=== PATIENT | male | born 1950 | race Caucasian/White ===

== ENCOUNTER 2023-07-14 08:29 | Outpatient (REF) | payer MEDICARE, SELFPAY ==
--- NOTE | ~2023-07-14 | XR_ITS ---
EXAMINATION: XR SHOULDER, RIGHT CLINICAL INFORMATION: Pain COMPARISON: None available. TECHNIQUE: AP neutral and transscapular Y view, 2 views, of the right shoulder. FINDINGS: Mild degenerative changes acromioclavicular joint. Mild hypertrophic change along the inferior aspect of the glenoid. No abnormal soft tissue calcifications identified adjacent to the humeral head. Glenohumeral alignment preserved. XR/XR shoulder RT min 2V IMPRESSION: Mild degenerative changes.
== END 2023-07-14 08:30 | disposition home or self-care (01) ==
LOC: HO.HOSX 08:29
PROVIDERS: Visit Provider Orthopaedic Surgery
DX: M25.811 Other specified joint disorders, right shoulder (principal)
CPT/HCPCS: 20610; 73030; J3301

== ENCOUNTER 2023-07-14 08:45 | Outpatient (AMB) | payer MEDICARE, SELFPAY ==
--- NOTE | 2023-07-14 08:51 | MHC.OFFVIS ---
Intake Vital Signs 07/14/23 09:01 Height 5 ft 11 in Weight 185 lb BMI 25.8 Intake Visit Reasons: HOST AND HOSTESS-Right Shoulder Pain Intake Note: Bebeto is a 72 year old right hand dominant male who presents today with complaints of right shoulder pain. Injected in February 20 2023. The patient describes his pain as sharp in nature. He denies any weakness. He got fairly good relief from his last injection. He did aggravate his shoulder while playing basketball with his grandchildren. He has tried Tylenol and anti-inflammatory medicines which gave him minimal relief. He would like to hold off on surgery for as long as possible. Allergies allopurinol Allergy (Verified 07/14/23 09:02) racing heart enalapril Allergy (Verified 07/14/23 09:02) Swelling levofloxacin [From Levaquin] Allergy (Verified 07/14/23 09:02) racing heart Medication List - Last Reconciled 07/14/23 by Stanley Wright MD diltiazem HCl 180 mg PO DAILY hydrochlorothiazide 12.5 mg PO DAILY levocetirizine 5 mg PO DAILY rosuvastatin 10 mg PO QPM [facility] Surgical History (Updated 07/14/23 @ 09:05 by Rocio Martino CMA) H/O hernia repair (09/28/17) Social History (Updated 07/14/23 @ 09:05 by Rocio Martino CMA) Alcohol intake: current Alcohol intake frequency: holidays/special occasions only Patient Tobacco Use Status: Never used Tobacco Current occupational status: retired Physical Exam Vital Signs: BMI result Body Mass Index 25.8 Const Other: Well-nourished well-developed very friendly male awake alert and oriented x3 in no acute distress Extrem Other: Bilateral upper extremity examination shows good capillary refill, no skin lesions noted, normal sensation light touch Right shoulder examination shows almost full range of motion when compared to his left shoulder, 4+ out of 5 strength with supraspinatus testing, positive impingement signs, tenderness over his acromioclavicular joint, no instability Office Procedures Joint Injection/Drain Joint Injection/Drain Primary Site: right shoulder Injected: 40 mg of, Kenalog and 1% plain lidocaine Procedure: The patient tolerated the procedure well Coding 85272 - Large joint Procedure code (CPT) selection complete Results Reviewed Results Reviewed: 07/14/23 09:28 Lidocaine HCl 2 % MPF [Xylocaine 2 % MPF] 5 ml .ROUTE .STK-MED ONE Triamcinolone Acetonide [Kenalog-40] 40 mg .ROUTE .STK-MED ONE X-rays of the patient's right shoulder taken today show severe acromioclavicular joint narrowing, a type 3 acromion, no acute bony abnormalities Assessment & Plan Assessment & Plan (1) Impingement of right shoulder: Code(s): M25.811 - Other specified joint disorders, right shoulder Plan Mr. Comer presents with right shoulder pain due to impingement syndrome and rotator cuff tendinosis. I had a lengthy discussion with the patient regarding the treatment options. He wishes to hold off on surgery for as long as possible. I agree with this plan. The risks and benefits of a right shoulder cortisone injection were discussed at length with the patient. The patient wished to proceed. He tolerated the injection well. Activity modifications were discussed at length with the patient. He will follow up with me on an as-needed basis should his symptoms not plateau at an acceptable level over the next few months. Feel free to call me at any time should questions regarding his orthopedic management arise. Thank you very much for asking me to see this very friendly gentleman. I spent 22 minutes in reviewing the patient's records and imaging studies, seeing the patient and documenting in the medical record. Orders: Orders XR shoulder RT min 2V Today M25.511 - Pain in right shoulder AMB Joint Injection/Aspiration Today M25.811 - Other specified joint disorders, right shoulder Coding Level of Care Code Est Pt Level 2 (95309) Diagnoses Impingement of right shoulder M25.811 CPT Codes Coding - 13542 Large joint: 94937 - Large joint ([id number])
[2023-07-14 09:01] VITALS: BMI 25.8
== END 2023-07-14 09:44 | disposition home or self-care (01) ==
PROVIDERS: PCP Family Medicine; Visit Provider Orthopaedic Surgery
DX: M25.811 Other specified joint disorders, right shoulder (principal)
CPT/HCPCS: 20610; 99204; 99214

== ENCOUNTER 2023-10-14 13:10 | Outpatient (AMB) | payer MEDICARE, SELFPAY ==
--- NOTE | 2023-10-14 13:38 | MHC.OFFVIS ---
Intake Intake Visit Reasons: ov- -Right Shoulder Pain Intake Note: Justen is a 72 year old male who present today for a follow up of his right shoulder pain. Patient reports his last injection gave him mild relief. He has done physical therapy for 12 weeks over the last 6 months which aggravated his pain. He denies any weakness. He has tried Tylenol and anti-inflammatory medicines which gave him minimal relief. Allergies allopurinol Allergy (Verified 10/14/23 13:45) racing heart enalapril Allergy (Verified 10/14/23 13:45) Swelling levofloxacin [From Levaquin] Allergy (Verified 10/14/23 13:45) racing heart Medication List - Last Reconciled 10/14/23 by Stanley Wright MD diltiazem HCl 180 mg PO DAILY hydrochlorothiazide 12.5 mg PO DAILY levocetirizine 5 mg PO DAILY rosuvastatin 10 mg PO QPM [facility] Surgical History (Updated 07/14/23 @ 09:05 by Rocio Martino CMA) H/O hernia repair (09/28/17) Social History Alcohol intake: current Alcohol intake frequency: holidays/special occasions only Patient Tobacco Use Status: Never used Tobacco Current occupational status: retired Physical Exam Const Other: Well-nourished well-developed very friendly male awake alert and oriented x3 in no acute distress Extrem Other: Bilateral upper extremity examination shows good capillary refill, no skin lesions noted, normal sensation light touch Right shoulder examination shows decreased range of motion when compared to his left shoulder, 4+ out of 5 strength with supraspinatus testing, positive impingement signs, tenderness over his acromioclavicular joint, no instability Office Procedures Joint Injection/Drain Joint Injection/Drain Primary Site: right shoulder Prep: site was prepped using aseptic technique Injected: 40 mg of, Kenalog and 1% plain lidocaine Procedure: The patient tolerated the procedure well Coding 78779 - Large joint Procedure code (CPT) selection complete Results Reviewed Results Reviewed: 10/14/23 14:02 Lidocaine HCl 2 % MPF [Xylocaine 2 % MPF] 5 ml .ROUTE .STK-MED ONE Triamcinolone Acetonide [Kenalog-40] 40 mg .ROUTE .STK-MED ONE MRI of the patient's right shoulder shows severe acromioclavicular joint narrowing, a type 2 acromion, signal change within the supraspinatus tendon due to rotator cuff tendinosis versus a small rotator cuff tear Assessment & Plan Assessment & Plan (1) Impingement of right shoulder: Code(s): M25.811 - Other specified joint disorders, right shoulder Plan: Mr. Comer presents with right shoulder pain due to impingement syndrome, acromioclavicular joint arthritis and rotator cuff tendinosis versus a small tear. I had a lengthy discussion with the patient regarding the treatment options. He wishes to hold off on surgery for as long as possible. I agree with this plan. The risks and benefits of a right shoulder cortisone injection were discussed at length with the patient. The patient wished to proceed. He tolerated the injection well. He will continue with his home stretching program to prevent stiffness. If he fails continued non operative treatments we will further discuss the risks and benefits of right shoulder surgery. Surgery would likely involve right shoulder diagnostic arthroscopy with distal clavicle excision, acromioplasty and rotator cuff repair showed a full-thickness tear be found at the time of his surgery. Feel free to call me at any time should questions regarding his orthopedic management arise. I spent 22 minutes in reviewing the patient's records and imaging studies, seeing the patient and documenting in the medical record. Orders: Orders AMB Joint Injection/Aspiration Today M25.811 - Other specified joint disorders, right shoulder Coding Level of Care Code Est Pt Level 2 (27521) Diagnoses Impingement of right shoulder M25.811 CPT Codes Coding - 70812 Large joint: 70583 - Large joint ([id number])
== END 2023-10-14 14:19 | disposition home or self-care (01) ==
PROVIDERS: PCP Family Medicine; Visit Provider Orthopaedic Surgery
DX: M25.811 Other specified joint disorders, right shoulder (principal); M75.41 Impingement syndrome of right shoulder; M19.011 Primary osteoarthritis, right shoulder
CPT/HCPCS: 20610; 99213

== ENCOUNTER → 2023-10-14 13:10 | Outpatient (BNVA) | payer MEDICARE, SELFPAY | PROVIDERS: PCP Family Medicine; Visit Provider Orthopaedic Surgery | DX: M25.811 Other specified joint disorders, right shoulder (principal) | CPT/HCPCS: 20610; 99212; J3301 ==

== ENCOUNTER 2024-04-11 09:33 | Outpatient (AMB) | payer MEDICARE, SELFPAY ==
[2024-04-11 09:45] VITALS: BMI 25.8
--- NOTE | 2024-04-11 09:45 | A.OFFVIS_ITS ---
Vital Signs 04/11/24 09:45 Height 5 ft 11 in Weight 185 lb BMI 25.8 Intake Visit Reasons: OV-Right Shoulder Pain-follow up Intake Note: Bebeto is a 72 year old right hand dominant male who presents today with complaints of progressively worsening right shoulder pain and weakness. The patient states that he aggravated his shoulder last year while playing basketball with his grandchildren. Since that time his pain and weakness have gotten worse. He has failed the last 6 weeks of conservative treatment. He has tried Tylenol and anti-inflammatory medicines which gave him minimal relief. Has also done physical therapy exercises which aggravated his pain. Has had injections in the past which gave him only temporary relief. The patient has tried Tylenol and anti-inflammatory medicines which gave him only mild relief. The patient reports weakness when lifting his right hand above shoulder height. Allergies allopurinol Allergy (Verified 04/11/24 09:56) racing heart enalapril Allergy (Verified 04/11/24 09:56) Swelling levofloxacin [From Levaquin] Allergy (Verified 04/11/24 09:56) racing heart Medication List - Last Reconciled 04/11/24 by Stanley Wright MD diltiazem HCl CD 180 mg PO DAILY hydrochlorothiazide 12.5 mg PO DAILY levocetirizine 5 mg PO DAILY rosuvastatin 10 mg PO QPM [facility] Surgical History (Updated 07/14/23 @ 09:05 by Rocio Martino CMA) H/O hernia repair (09/28/17) Social History (Updated 04/11/24 @ 09:57 by Cee Mcdaniels CMA) Alcohol intake: current Alcohol intake frequency: holidays/special occasions only Patient Tobacco Use Status: Never used Tobacco Current occupational status: retired Current occupation: Right hand dominant Physical Exam Vital Signs: BMI result Body Mass Index 25.8 Const Other: Well-nourished well-developed very friendly male awake alert and oriented x3 in no acute distress Extrem Other: Bilateral upper extremity examination shows good capillary refill, no skin lesions noted, normal sensation light touch Right shoulder examination shows slightly decreased range of motion when compared to his left shoulder, 4+ out of 5 strength with supraspinatus testing, positive impingement signs, tenderness over his acromioclavicular joint, no instability Results Reviewed Results Reviewed: X-rays of the patient's right shoulder show severe acromioclavicular joint narrowing, a type 2 acromion, no acute bony abnormalities Assessment & Plan Assessment & Plan (1) Right shoulder pain: Code(s): M25.511 - Pain in right shoulder Category: Medical Plan Mr. Comer presents with progressively worsening right shoulder pain and weakness possibly due to a full-thickness rotator cuff tear. Thus, I will send the patient for an MRI of his right shoulder for further evaluation. I will see him back once the MRI is completed to discuss the findings and treatment options. Will continue with his range of motion exercises in the meantime to prevent stiffness. Feel free to call me at any time should questions regarding his orthopedic management arise. I spent 21 minutes in reviewing the patient's records and imaging studies, seeing the patient and documenting in the medical record. Orders: Orders MR shoulder RT wo con Today M75.121 - Complete rotator cuff tear or rupture of right shoulder, not specified as traumatic Coding Level of Care Code Est Pt Level 3 (14076) Diagnoses Right shoulder pain M25.511
== END 2024-04-11 10:10 | disposition home or self-care (01) ==
PROVIDERS: PCP Family Medicine; Visit Provider Orthopaedic Surgery
DX: M25.511 Pain in right shoulder (principal)
CPT/HCPCS: 99213

== ENCOUNTER → 2024-04-11 09:33 | Outpatient (BNVA) | payer MEDICARE, SELFPAY | PROVIDERS: PCP Family Medicine; Visit Provider Orthopaedic Surgery | DX: M25.511 Pain in right shoulder (principal) | CPT/HCPCS: 99212 ==

== ENCOUNTER 2024-05-04 13:32 | Outpatient (AMB) | payer MEDICARE, SELFPAY ==
--- NOTE | 2024-05-04 13:33 | A.OFFVIS_ITS ---
Intake Visit Reasons: O/V Rt shoulder MRI review Intake Note: Justen is a 73 year old male who presents with complaints of progressively worsening right shoulder pain. The patient states that he aggravated his shoulder last year while playing basketball with his grandchildren. Since that time his pain and weakness have gotten worse. He has failed the last 6 weeks of conservative treatment. He has tried Tylenol and anti-inflammatory medicines which gave him minimal relief. Has also done physical therapy exercises which aggravated his pain. Has had injections in the past which gave him only temporary relief. The patient has tried Tylenol and anti-inflammatory medicines which gave him only mild relief. The patient reports mild weakness when lifting his right hand above shoulder height. Allergies allopurinol Allergy (Verified 05/04/24 13:42) racing heart enalapril Allergy (Verified 05/04/24 13:42) Swelling levofloxacin [From Levaquin] Allergy (Verified 05/04/24 13:42) racing heart Medication List - Last Reconciled 05/05/24 by Stanley rWight MD diltiazem HCl CD 180 mg PO DAILY hydrochlorothiazide 12.5 mg PO DAILY levocetirizine 5 mg PO DAILY rosuvastatin 10 mg PO QPM [facility] Surgical History H/O hernia repair (09/28/17) Social History Alcohol intake: current Alcohol intake frequency: holidays/special occasions only Patient Tobacco Use Status: Never used Tobacco Current occupational status: retired Current occupation: Right hand dominant Physical Exam Const Other: Well-nourished well-developed very friendly male awake alert and oriented x3 in no acute distress Extrem Other: Bilateral upper extremity examination shows good capillary refill, no skin lesions noted, normal sensation light touch Right shoulder examination shows slightly decreased range of motion when compared to his left shoulder, 4+ out of 5 strength with supraspinatus testing, positive impingement signs, tenderness over his acromioclavicular joint, no instability Results Reviewed Results Reviewed: MRI of the patient's right shoulder show severe acromioclavicular joint narrowing, a type 2 acromion, signal change within the supraspinatus tendon most likely due to rotator cuff tendinosis Assessment & Plan Assessment & Plan (1) Impingement of right shoulder: Code(s): M25.811 - Other specified joint disorders, right shoulder Category: Medical Plan Mr. Comer presents with right shoulder pain due to impingement syndrome and acromioclavicular joint arthritis. I had a lengthy discussion with the patient regarding the treatment options. At this point he has failed continued non operative treatments. The risks and benefits of right shoulder surgery were discussed at length with the patient. The patient wishes to proceed with surgery. Surgery will most likely involve right shoulder diagnostic arthroscopy with arthroscopic distal clavicle excision and acromioplasty. The patient will contact my office to pick a surgery date. He will follow-up as instructed. Feel free to call me at any time should questions regarding his orthopedic management arise. I spent 20 minutes in reviewing the patient's records and imaging studies, seeing the patient and documenting in the medical record. Coding Level of Care Code Est Pt Level 3 (79803) Diagnoses Impingement of right shoulder M25.811
== END 2024-05-04 13:55 | disposition home or self-care (01) ==
PROVIDERS: PCP Family Medicine; Visit Provider Orthopaedic Surgery
DX: M25.811 Other specified joint disorders, right shoulder (principal)
CPT/HCPCS: 99213

== ENCOUNTER → 2024-05-04 13:32 | Outpatient (BNVA) | payer MEDICARE, SELFPAY | PROVIDERS: PCP Family Medicine; Visit Provider Orthopaedic Surgery | DX: M25.811 Other specified joint disorders, right shoulder (principal) | CPT/HCPCS: 99212 ==

== ENCOUNTER → 2024-06-06 11:14 | Outpatient (BNV) | payer MEDICARE, SELFPAY | PROVIDERS: PCP Family Medicine; Visit Provider Internal Medicine Cardiovascular Disease | DX: R00.1 Bradycardia, unspecified (principal); R94.31 Abnormal electrocardiogram [ECG] [EKG] | CPT/HCPCS: 93010 ==

== ENCOUNTER 2024-06-10 07:45 | Day surgery (SDC) | payer MEDICARE, SELFPAY ==
--- NOTE | 2024-06-06 | ECG_ITS ---
Test Reason : pre op Blood Pressure : / mmHG Vent. Rate : 055 BPM Atrial Rate : 055 BPM P-R Int : 156 ms QRS Dur : 092 ms QT Int : 464 ms P-R-T Axes : 050 -32 028 degrees QTc Int : 443 ms Sinus bradycardia Left axis deviation Abnormal ECG No previous ECGs available Referred By: Deidre Bhatia Electronically Signed By:Srinivasa Tolentino
[2024-06-06 10:14] VITALS: BP 136/77; PULSE 56; RESP 20; O2SAT 97; BMI 28.5
--- NOTE | 2024-06-06 10:28 | P.CONAN_ITS ---
Documented by User: Deidre Bhatia NP 06/08/24 14:13 HPI - Anesthesia Eval Consult details Narrative: 73yo M for Right Shoulder Arthroscopy with distal clavicle excision and acromioplasty, 06/10/24 No recent illness Walks 3 miles ~ QOD, No CP/SOB Hx angioedema with CARLITO and shrimp, daily levocetirizine DNR - discussed periop reversal, pt and spouse verbalized understanding [facility] Active Problems Active Problems: All Active Problems Impingement of right shoulder (Acute) Right shoulder pain (Acute) Past Medical History Medical History Angioedema Gout PVCs (premature ventricular contractions) Elevated cholesterol HTN (hypertension) Family History Family history of problems with anesthesia: No Surgical History Surgical History H/O colonoscopy H/O hernia repair (09/28/17) History of Problems with Anesthesia: No Social History Social History Are you a primary customer care coordinator to a significant other at home: No Do you presently have visiting nurse or other home services: No Alcohol intake: current Alcohol intake frequency: holidays/special occasions only Patient Tobacco Use Status: Never used Tobacco Use of substances other than those prescribed or required for medical reasons: No Have you been hit, kicked, punched, or otherwise hurt by someone within the past year? If so, by whom?: No Are you DNR?: Yes Advance Directives Information Provided: Yes (as above noted) Advance Directives on File: No Recently lost weight without trying: No Eating poorly because of decreased appetite: No Nutrition Risks: Surgical patient >75years Poor oral hygiene: No Current occupational status: retired Current occupation: Right hand dominant Meds Allergies Allergy/AdvReac Type Severity Reaction Status Date / Time allopurinol Allergy Intermediate rapid HR Verified 06/03/24 10:12 enalapril Allergy Intermediate Swelling Verified 06/03/24 10:12 levofloxacin [From Levaquin] Allergy Intermediate rapid HR Verified 06/03/24 10:12 shrimp Allergy Intermediate swelling/? Verified 06/06/24 10:11 idiopathic reaction Home Medications ?Medication ?Instructions ?Recorded ?Confirmed ?Last Taken ?Type diltiazem HCl 180 mg 180 mg PO QAM 07/14/23 06/06/24 Unknown History capsule,extended release 24 hr hydrochlorothiazide 12.5 mg tablet 12.5 mg PO QAM 07/14/23 06/06/24 06/10/24 His tory levocetirizine 5 mg tablet 5 mg PO QAM 07/14/23 06/06/24 06/10/24 History rosuvastatin 10 mg tablet 10 mg PO QAM 07/14/23 06/06/24 Unknown History Exam Height,Weight and Vital Signs: Height 5 ft 9.5 in Weight 88.904 kg Last Vital Signs Pulse 56 06/06/24 10:14 Resp 20 06/06/24 10:14 BP 136/77 06/06/24 10:14 Pulse Ox 97 06/06/24 10:14 O2 Del Method Room Air 06/06/24 10:14 Pertinent Lab Results Pertinent Lab Results: CBC 04/30/24 from outside facility WNL Lab Results 06/06/24 Range/Units 11:00 Sodium 141 (135-145) mmol/L Potassium 3.6 (3.3-5.1) mmol/L Chloride 107 (96-108) mmol/L Carbon Dioxide 27 (22-29) mmol/L Anion Gap 11 L (12-20) BUN 20 H (9-16) mg/dL Creatinine 0.97 (0.5-1.4) mg/dL Estim Creat Clear Calc 72.5 Estimated GFR > 60 Random Glucose 85 (60-115) mg/dL Calcium 9.3 (8.4-10.2) mg/dL Narrative Narrative: EKG 05/2024 Vent. Rate : 055 BPM Atrial Rate : 055 BPM P-R Int : 156 ms QRS Dur : 092 ms QT Int : 464 ms P-R-T Axes : 050 -32 028 degrees QTc Int : 443 ms Sinus bradycardia Left axis deviation Abnormal ECG No previous ECGs available/ Airway Mallampati Class: III TM Dist: >3cm Neck ROM: Full Loose/Missing/Broken Teeth: No (Crowned molars) Heart: RRR Lungs: CTAB Assessment and Plan Assessment Anesthesia Assessment: Anesthesia Plan Discussed and PAT Visit Final Anesthetic Review Family History of Problems with Anesthesia: No History of Problems with Anesthesia: No Documented by User: Mary Lopez MD 06/10/24 09:14 PMFSH Past Medical History Medical History Angioedema Gout PVCs (premature ventricular contractions) Elevated cholesterol HTN (hypertension) Surgical History Surgical History H/O colonoscopy H/O hernia repair (09/28/17) Social History Social History Are you a primary customer care coordinator to a significant other at home: No Do you presently have visiting nurse or other home services: No Alcohol intake: current Alcohol intake frequency: holidays/special occasions only Patient Tobacco Use Status: Never used Tobacco Use of substances other than those prescribed or required for medical reasons: No Have you been hit, kicked, punched, or otherwise hurt by someone within the past year? If so, by whom?: No Are you DNR?: Yes Advance Directives Information Provided: Yes (as above noted) Advance Directives on File: No Recently lost weight without trying: No Eating poorly because of decreased appetite: No Nutrition Risks: Surgical patient >75years Poor oral hygiene: No Current occupational status: retired Current occupation: Right hand dominant Meds Allergies Allergy/AdvReac Type Severity Reaction Status Date / Time allopurinol Allergy Intermediate rapid HR Verified 06/03/24 10:12 enalapril Allergy Intermediate Swelling Verified 06/03/24 10:12 levofloxacin [From Levaquin] Allergy Intermediate rapid HR Verified 06/03/24 10:12 shrimp Allergy Intermediate swelling/? Verified 06/06/24 10:11 idiopathic reaction Home Medications ?Medication ?Instructions ?Recorded ?Confirmed ?Last Taken ?Type diltiazem HCl 180 mg 180 mg PO QAM 07/14/23 06/06/24 Unknown History capsule,extended release 24 hr hydrochlorothiazide 12.5 mg tablet 12.5 mg PO QAM 07/14/23 06/06/24 06/10/24 History levocetirizine 5 mg tablet 5 mg PO QAM 07/14/23 06/06/24 06/10/24 History rosuvastatin 10 mg tablet 10 mg PO QAM 07/14/23 06/06/24 Unknown History Assessment and Plan Final Anesthetic Review ASA Class: II Final Preanesthetic Review: No Changes in Pt Med Stat, Meds/Allgs Chart Reviewed, Consent Obtained/Reviewed and Anes Risks/Benef Reviewed Patient Risk: Intermediate Procedure Risk: Intermediate Anesthetic Plan Anesthetic Plan: GA Disposition: Standard PACU
[2024-06-06 12:39] LABS: Anion Gap 11 (12-20); Blood Urea Nitrogen 20 mg/dL (9-16); Calcium 9.3 mg/dL (8.4-10.2); Carbon Dioxide 27 mmol/L (22-29); Chloride 107 mmol/L (96-108); Creatinine Clr Calc Pharmacy 72.5; Estimated Glomerular Filt Rate > 60; Glucose Random 85 mg/dL (60-115); Potassium 3.6 mmol/L (3.3-5.1); Sodium 141 mmol/L (135-145)
[2024-06-10] VITALS (8 sets, daily range): BP systolic 106–133; BP diastolic 59–73; PULSE 62–67; RESP 16–18; TEMP 36.6; O2SAT 92–98; BMI 27.7
[2024-06-10] MEDS: Lactated Ringers 1,000 ML 100 ML IVCONT (09:10)
--- NOTE | 2024-06-10 10:01 | PC.NURSE ---
24hr update documented on paper.
--- NOTE | 2024-06-10 10:04 | PC.NURSE ---
Dr. Wright at bedside documenting 24hr update on paper.
--- NOTE | 2024-06-10 12:03 | PM.OP ---
Brief Operative Note Date of Service: 06/10/24 Pre-op diagnosis: Right shoulder impingement syndrome, right shoulder acromioclavicular joint arthritis, right shoulder adhesive capsulitis Post-op diagnosis: same Procedure: Right shoulder arthroscopic distal clavicle excision, right shoulder arthroscopic acromioplasty, right shoulder arthroscopic anterior capsular release, right shoulder manipulation under anesthesia Implants: none Surgeon: Stanley Wright MD Anesthesia: GETA and regional Was an Machine Pack Assembler used for this Procedure?: No Estimated blood loss (mL): 10 Pathology: none sent Condition: stable Disposition: PACU
--- NOTE | 2024-06-10 12:04 | P.OP_ITS ---
Operative Note Operative Note Date of Service: 06/10/24 Narrative: After the patient was identified as Justen Comer and his right shoulder was initialed by myself the patient was brought to the holding area where a right shoulder interscalene regional block was performed by the anesthesiologist in routine fashion. The patient was then brought to the operating room where general anesthesia was induced by the anesthesiologist in routine fashion. The patient was given 2 g of IV Ancef preoperatively for infection prophylaxis. Examination under anesthesia of the patient's right shoulder showed decreased passive range of motion when compared to the left shoulder. The patient's right shoulder had passive forward flexion to 140 degrees compared to 170 degrees, external rotation to 30 degrees compared to 60 degrees, and internal rotation to 40 degrees compared to 50 degrees. The patient was gently positioned in the beach chair position with all bony prominences well padded. The patient's right shoulder region and upper extremity were prepped and draped in sterile fashion. A formal time-out was completed. A #11 scalpel blade was used to make a posterior portal 2 cm inferior and 1 cm medial to the posterolateral corner of the acromion. Blunt trocar technique was used to enter the glenohumeral joint in routine fashion. An anterior portal was made just lateral to the coracoid process after proper positioning was confirmed using a spinal needle. Diagnostic arthroscopy showed minimal degenerative changes of the glenoid articular surface. There were diffuse grade 2 and 3 degenerative changes of the humeral head articular surface. The articular surface of the humeral head was then made smooth using the arthroscopic shaver. There was no evidence of rotator cuff tearing. There was no evidence of injury to the biceps tendon or its insertion onto the glenoid. There was inflammation of the anterior joint capsule consistent with adhesive capsulitis. The ArthroCare Wand was then used to perform an anterior capsular release between the inferior border of the bi ceps tendon and the superior border of the subscapularis tendon. The arthroscope was then placed from the posterior portal into the subacromial space. A lateral portal was made 2 fingerbreadths lateral to the anterior lateral corner of the acromion. The ArthroCare Wand was used to ablate soft tissues along the undersurface of the acromion as well as to excise the coracoacromial ligament. There was a sharp spur along the undersurface of the acromion which was removed using the hooded bur. The arthroscope was then placed into the lateral portal and the acromioplasty was completed with the bur in the posterior portal using the posterior aspect of the acromion as a cutting block. The ArthroCare Wand was then brought in through the anterior portal and was used to ablate soft tissues along the acromioclavicular joint and distal clavicle. The posterior and superior ligamentous structures were left intact. A distal clavicle excision of 8 mm was performed using the fluted bur. Any michael ining bursal tissue was removed using the arthroscopic shaver. The subacromial space was irrigated and then drained. All arthroscopic instruments were removed. A gentle manipulation under anesthesia was then performed. Full passive range of motion was easily attained. The 3 portals were closed with 3-0 nylon interrupted suture. The subacromial space was injected with Marcaine. Dry sterile dressing was placed over all incisions. The patient's right upper extremity was placed into a sling. The patient was awoken and extubated in the operating room. The patient was transferred to the recovery room in stable condition.
[2024-06-10] MEDS: cefTRIAXone sodium 1 GM in 0.9 % Sodium Chloride 50 ML IV (12:18)
== END 2024-06-10 14:00 | disposition home or self-care (01) ==
PROVIDERS: Nurse Practitioner; PCP Family Medicine; Visit Provider Orthopaedic Surgery
PROC: (CPT 29805; principal; 2024-06-10 10:30)
DX: M75.41 Impingement syndrome of right shoulder (principal); M19.011 Primary osteoarthritis, right shoulder; M75.01 Adhesive capsulitis of right shoulder; I10 Essential (primary) hypertension; E78.00 Pure hypercholesterolemia, unspecified; I49.3 Ventricular premature depolarization; M10.9 Gout, unspecified; Z79.899 Other long term (current) drug therapy; Z88.8 Allergy status to other drugs, medicaments and biological substances; Z98.890 Other specified postprocedural states
CPT/HCPCS: 29824; 29825; 29826; 36415; 80048; 93005; J0131; J0171; J0665; J0690; J0696; J1100; J1885; J2250; J2405; J2704; J2795; J3010

== ENCOUNTER → 2024-06-10 07:45 | Outpatient (BNV) | payer MEDICARE, SELFPAY | PROVIDERS: PCP Family Medicine; Visit Provider Orthopaedic Surgery | DX: M75.41 Impingement syndrome of right shoulder (principal); M19.011 Primary osteoarthritis, right shoulder; M75.01 Adhesive capsulitis of right shoulder | CPT/HCPCS: 29824; 29826 ==

== ENCOUNTER 2024-06-23 10:32 | Outpatient (AMB) | payer MEDICARE, SELFPAY ==
--- NOTE | 2024-06-23 10:33 | A.OFFVIS_ITS ---
Intake Visit Reasons: PO RT shoulder 06/10/24 Intake Note: Justen is a 73 year old male who presents for his 1st postoperative visit after undergoing right shoulder arthroscopic surgery on 06/10/2024. Reports mild intermittent discomfort in his right shoulder. Denies any fevers or chills. Is taking just Tylenol for his discomfort. He has begun gentle kdwrh-te-esfdlo exercises on his own. Allergies allopurinol Allergy (Intermediate, Verified 06/23/24 10:33) rapid HR enalapril Allergy (Intermediate, Verified 06/23/24 10:33) Swelling levofloxacin [From Levaquin] Allergy (Intermediate, Verified 06/23/24 10:33) rapid HR shrimp Allergy (Intermediate, Verified 06/23/24 10:33) swelling/? idiopathic reaction Medication List - Last Reconciled 06/23/24 by Stanley Wright MD diltiazem HCl CD 180 mg PO QAM hydrochlorothiazide 12.5 mg PO QAM levocetirizine 5 mg PO QAM oxycodone 10 mg (2 x 5 mg) PO Q4H PRN 1 week rosuvastatin 10 mg PO QAM PFSH Medical History Angioedema Gout PVCs (premature ventricular contractions) Elevated cholesterol HTN (hypertension) Surgical History H/O colonoscopy H/O hernia repair (09/28/17) Social History Are you a primary medicare sales representative to a significant other at home: No Do you presently have visiting nurse or other home services: No Alcohol intake: current Alcohol intake frequency: holidays/special occasions only Patient Tobacco Use Status: Never used Tobacco Current occupational status: retired Current occupation: Right hand dominant Physical Exam Extrem Other: Right shoulder examination shows that the surgical incisions are healing well, no erythema, mild discomfort with range of motion, no instability Assessment & Plan Assessment & Plan (1) Right shoulder pain: Code(s): M25.511 - Pain in right shoulder Category: Medical Plan Mr. Comer is doing well after undergoing right shoulder arthroscopic surgery on 06/10/2024. His sutures were removed and Steri-Strips placed over his incisions. I did give him a prescription to go to outpatient physical therapy for passive and active range of motion exercises. The do's and don'ts of lifting were discussed at length with the patient. Will contact me prior to his follow-up appointment in 6-8 weeks should any questions or concerns arise. Feel free to call me at any time should questions regarding his orthopedic management arise. Orders: Orders PT Evaluation and Treatment Today M25.511 - Pain in right shoulder Coding Level of Care Code Global (40453) Diagnoses Right shoulder pain M25.511
== END 2024-06-23 10:56 | disposition home or self-care (01) ==
PROVIDERS: PCP Family Medicine; Visit Provider Orthopaedic Surgery
DX: M25.511 Pain in right shoulder (principal)
CPT/HCPCS: 99024

== ENCOUNTER → 2024-06-23 10:32 | Outpatient (BNVA) | payer MEDICARE, SELFPAY | PROVIDERS: PCP Family Medicine; Visit Provider Orthopaedic Surgery | DX: Z47.89 Encounter for other orthopedic aftercare (principal); M25.511 Pain in right shoulder; Z98.890 Other specified postprocedural states | CPT/HCPCS: 99212 ==

== ENCOUNTER 2024-08-18 11:43 | Outpatient (AMB) | payer MEDICARE, SELFPAY ==
--- NOTE | 2024-08-18 11:49 | A.OFFVIS_ITS ---
Intake Visit Reasons: PO RT shoulder 06/10/24 Intake Note: Justen is a 73 year old male who presents with complaints of mild intermittent discomfort in his right shoulder after undergoing right shoulder arthroscopic surgery on 06/10/2024. He denies fevers or chills. He continues to go to formal physical therapy. He would like to return to swimming and playing tennis. Allergies allopurinol Allergy (Intermediate, Verified 08/18/24 11:53) rapid HR enalapril Allergy (Intermediate, Verified 08/18/24 11:53) Swelling levofloxacin [From Levaquin] Allergy (Intermediate, Verified 08/18/24 11:53) rapid HR shrimp Allergy (Intermediate, Verified 08/18/24 11:53) swelling/? idiopathic reaction Medication List - Last Reconciled 08/18/24 by Stanley Wright MD diltiazem HCl CD 180 mg PO QAM hydrochlorothiazide 12.5 mg PO QAM levocetirizine 5 mg PO QAM oxycodone 10 mg (2 x 5 mg) PO Q4H PRN 1 week rosuvastatin 10 mg PO QAM PFSH Medical History Angioedema Gout PVCs (premature ventricular contractions) Elevated cholesterol HTN (hypertension) Surgical History H/O colonoscopy H/O hernia repair (09/28/17) Social History Are you a primary home health care provider to a significant other at home: No Do you presently have visiting nurse or other home services: No Alcohol intake: current Alcohol intake frequency: holidays/special occasions only Patient Tobacco Use Status: Never used Tobacco Current occupational status: retired Current occupation: Right hand dominant Physical Exam Extrem Other: Right shoulder examination shows slightly decreased range of motion when compared to his left shoulder, 5/5 strength with supraspinatus testing, minimal discomfort with range of motion, no instability Assessment & Plan Assessment & Plan (1) Right shoulder pain: Code(s): M25.511 - Pain in right shoulder Category: Medical Plan Mr. Comer continues to do very well after undergoing right shoulder arthroscopic surgery on 06/10/2024. He will continue going to formal physical therapy for now. Will gradually transition to a home exercise program. He will gradually progress to activities as tolerated. The do's and don'ts of lifting were discussed at length with the patient. He will contact me prior to his follow-up appointment in 2 months should any questions or concerns arise. Feel free to call me at any time should questions regarding his orthopedic management arise. Orders: Orders PT Evaluation and Treatment Today M25.511 - Pain in right shoulder Coding Level of Care Code Global (13013) Diagnoses Right shoulder pain M25.511
== END 2024-08-18 12:17 | disposition home or self-care (01) ==
PROVIDERS: PCP Family Medicine; Visit Provider Orthopaedic Surgery
DX: M25.511 Pain in right shoulder (principal)
CPT/HCPCS: 99024

== ENCOUNTER → 2024-08-18 11:43 | Outpatient (BNVA) | payer MEDICARE, SELFPAY | PROVIDERS: PCP Family Medicine; Visit Provider Orthopaedic Surgery | DX: Z47.89 Encounter for other orthopedic aftercare (principal); M25.511 Pain in right shoulder | CPT/HCPCS: 99212 ==

== ENCOUNTER 2024-10-25 10:26 | Outpatient (AMB) | payer MEDICARE, SELFPAY ==
--- NOTE | 2024-10-25 10:27 | A.OFFVIS_ITS ---
Vital Signs 10/25/24 10:29 Height 5 ft 11 in Weight 190 lb BMI 26.5 Intake Visit Reasons: OV: RT shoulder 06/10/24 Intake Note: Justen is a 73 year old male who presents with complaints of mild intermittent discomfort along the lateral and posterior aspects of his right shoulder after undergoing right shoulder arthroscopic surgery on 06/10/2024. The patient cont inues to go to formal physical therapy. He has also returned to swimming for exercise. He does not take any medicines for his discomfort. Allergies allopurinol Allergy (Intermediate, Verified 10/25/24 10:30) rapid HR enalapril Allergy (Intermediate, Verified 10/25/24 10:30) Swelling levofloxacin [From Levaquin] Allergy (Intermediate, Verified 10/25/24 10:30) rapid HR shrimp Allergy (Intermediate, Verified 10/25/24 10:30) swelling/? idiopathic reaction Medication List - Last Reconciled 10/25/24 by Stanley Wright MD diltiazem HCl CD 180 mg PO QAM hydrochlorothiazide 12.5 mg PO QAM levocetirizine 5 mg PO QAM oxycodone 10 mg (2 x 5 mg) PO Q4H PRN 1 week rosuvastatin 10 mg PO QAM PFSH Medical History Angioedema Gout PVCs (premature ventricular contractions) Elevated cholesterol HTN (hypertension) Surgical History H/O colonoscopy H/O hernia repair (09/28/17) Social History Are you a primary home day care provider to a significant other at home: No Do you presently have visiting nurse or other home services: No Alcohol intake: current Alcohol intake frequency: holidays/special occasions only Patient Tobacco Use Status: Never used Tobacco Current occupational status: retired Current occupation: Right hand dominant Physical Exam Vital Signs: BMI result Body Mass Index 26.5 Const Other: Well-nourished well-developed very friendly male awake alert and oriented x3 in no acute distress Extrem Other: Bilateral upper extremity examination shows good capillary refill, no skin lesions noted, normal sensation light touch Right shoulder examination shows full range of motion when compared to his left shoulder, 5/5 strength with supraspinatus testing, minimal discomfort with resisted forward flexion, no instability Assessment & Plan Assessment & Plan (1) Right shoulder pain: Code(s): M25.511 - Pain in right shoulder Category: Medical Plan Mr. Comer continues to do very well after undergoing right shoulder arthroscopic surgery on 06/10/2024. He will continue going to formal physical therapy for now. He will gradually transition to a home exercise program. The do's and don'ts of lifting were discussed at length with the patient. He will contact me prior to his follow-up appointment in 3 months should any questions or concerns arise. Feel free to call me at any time should questions regarding his ortho pedic management arise. I spent 21 minutes in reviewing the patient's records and imaging studies, seeing the patient and documenting in the medical record. Coding Level of Care Code Est Pt Level 3 (50685) Complex EM visit Add On G2211 Diagnoses Right shoulder pain M25.511
[2024-10-25 10:29] VITALS: BMI 26.5
== END 2024-10-25 10:49 | disposition home or self-care (01) ==
PROVIDERS: PCP Family Medicine; Visit Provider Orthopaedic Surgery
DX: M25.511 Pain in right shoulder (principal)
CPT/HCPCS: 99213; G2211

== ENCOUNTER → 2024-10-25 10:26 | Outpatient (BNVA) | payer MEDICARE, SELFPAY | PROVIDERS: PCP Family Medicine; Visit Provider Orthopaedic Surgery | DX: M25.511 Pain in right shoulder (principal); Z98.890 Other specified postprocedural states | CPT/HCPCS: 99212 ==

== ENCOUNTER 2025-04-04 10:16 | Outpatient (AMB) | payer MEDICARE, SELFPAY ==
[2025-04-04 10:21] VITALS: BMI 26.5
--- NOTE | 2025-04-04 10:21 | A.OFFVIS_ITS ---
Vital Signs 04/04/25 10:21 Height 5 ft 11 in Weight 190 lb BMI 26.5 Intake Visit Reasons: Neck pain Intake Note: Justen is a 74 year old male who presents with complaints of progressively worsening neck pain which radiates into his right arm. He did undergo right shoulder arthroscopic surgery on 06/10/2024. He reports minimal discomfort in his right shoulder. He describes his neck pain as sharp in nature. His neck pain has gotten worse over the last 6 months in spite of continued non operative treatments. He has tried Tylenol and anti-inflammatory medicines which gave him minimal relief. He has failed the last 6 weeks of conservative treatment which has included physical therapy exercises, a home exercise program, Tylenol and anti-inflammatory medicines. He also reports intermittent weakness in his right arm. Allergies allopurinol Allergy (Intermediate, Verified 04/04/25 10:23) rapid HR enalapril Allergy (Intermediate, Verified 04/04/25 10:23) Swelling levofloxacin [From Levaquin] Allergy (Intermediate, Verified 04/04/25 10:23) rapid HR shrimp Allergy (Intermediate, Verified 04/04/25 10:23) swelling/? idiopathic reaction Medication List - Last Reconciled 04/04/25 by Stanley Wright MD diltiazem HCl CD 180 mg PO QAM hydrochlorothiazide 12.5 mg PO QAM levocetirizine 5 mg PO QAM rosuvastatin 10 mg PO QAM PFSH Medical History Angioedema Gout PVCs (premature ventricular contractions) Elevated cholesterol HTN (hypertension) Surgical History H/O colonoscopy H/O hernia repair (09/28/17) Social History Are you a primary childbirth and infant care teacher to a significant other at home: No Do you presently have visiting nurse or other home services: No Alcohol intake: current Alcohol intake frequency: holidays/special occasions only Patient Tobacco Use Status: Never used Tobacco Current occupational status: retired Current occupation: Right hand dominant Physical Exam Vital Signs: BMI result Body Mass Index 26.5 Const Other: Well-nourished well-developed very friendly male awake alert and oriented x3 in no acute distress Neck Other: Cervical spine examination shows pain with range of motion, right-sided paraspinal muscle tenderness, positive Spurling's test, 4/5 strength with testing of his right biceps and wrist extensors when compared to 5/5 strength on his left side Assessment & Plan Assessment & Plan (1) Neck pain on right side: Code(s): M54.2 - Cervicalgia Category: Medical Plan Mr. Comer presents with progressively worsening neck pain which radiates into his right arm as well as associated right upper extremity weakness most likely due to cervical stenosis or a disc herniation. Thus, I will send the patient for an MRI of his cervical spine for further evaluation. I will see him back once the MRI is completed to discuss the findings. I did give him a prescription for a Medrol Dosepak to help with his symptoms in the meantime. He will contact me prior to his follow-up appointment should his symptoms worsen in any way. Feel free to call me at any time should questions regarding his orthopedic management arise. I spent 20 minutes in reviewing the patient's records and imaging studies, seeing the patient and documenting in the medical record. Orders: Orders MR cervical spine wo con Today M54.2 - Cervicalgia Medications: New methylprednisolone (Medrol (Uli)) PO PER PKG DIR 21 ea 0RF Coding Level of Care Code Est Pt Level 3 (19340) Complex EM visit Add On G2211 Diagnoses Neck pain on right side M54.2
--- OUTSIDE RECORDS SUMMARY | 2025-04-04 11:45 | XMS_ITS | Clinical Summary ---
Author Organization Formerly [facility] Address [address] [place] [address] Care Team Providers Care Casino Games Dealer Name Role Phone Merrill Kline MD Primary Care Provider [phone] Allergies Active Allergy Reactions Criticality Noted Date Comments Allopurinol Other (See Comments),Nausea Only Amlodipine Other (See Comments) Medium 01/23/2023 Enalapril Other (See Comments) High 01/23/2023 Levofloxacin Other (See Comments) High 01/23/2023 Lisinopril Other (See Comments) Medium 01/23/2023 Losartan Other (See Comments) Medium 01/23/2023 Medications Medication Sig Dispensed Refills Start Date End Date Status dilTIAZem (CARDIZEM CD) 180 MG 24 hr capsule Take 1 capsule (180 mg total) by mouth daily. 0 11/28/2022 Active hydroCHLOROthiazide (HYDRODIURIL) tablet 12.5 mg Take 1 tablet (12.5 mg total) by mouth daily. 0 11/26/2022 Active indomethacin (INDOCIN) 50 MG capsule indomethacin 50 mg capsule TAKE 1 CAPSULE BY MOUTH THREE TIMES A DAY WITH FOOD NEEDED 0 Active rosuvastatin (CRESTOR) tablet 10 mg TAKE 1 TABLET BY MOUTH EVERY DAY IN THE EVENING FOR 90 DAYS 0 11/28/2022 Active Social History Tobacco Use Types Packs/Day Years Used Date Smoking Tobacco: Never Assessed Sex and Gender Information Value Date Recorded Sex Assigned at Not on file Gender Identity Not on file Sexual Orientation Not on file Job Start Date Occupation Industry Not on file Not on file Not on file Last Filed Vital Signs Vital Sign Reading Time Taken Comments Blood Pressure - - Pulse - - Temperature - - Respiratory Rate - - Oxygen Saturation - - Inhaled Oxygen Concentration - - Weight 83.9 kg (185 lb) 01/23/2023 1:15 PM EST Height 180.3 cm (5' 11 ) 01/23/2023 1:15 PM EST Body Mass Index 25.8 01/23/2023 1:15 PM EST Plan of Treatment Health Maintenance Due Date Last Done Comments Hepatitis C Screening 1950 Depression Screening 1960 Preventative Health Evaluation 1966 Fall Risk Assessment 2013 Shingrix-Zoster Vaccine (2 of 2) 01/28/2023 12/03/2022 RSV Adult > 60+ Yrs or (1 - 1-dose 75+ series) 2023 COVID-19 Vaccine ( season) 2024 09/10/2022, 03/15/2022, 08/26/2021, Additional history exists Influenza Vaccine (#1) 2024 , 09/24/2021, 09/17/2020, Additional history exists DTap / Tdap / Td (3 - Td or Tdap) 05/02/2029 05/02/2019, 04/03/2009 Pneumococcal Vaccine Completed 09/11/2015, 06/04/20 15 Hepatitis B Vaccines Aged Out No long er eligible based on patient's age to complete this topic RSV Ped < 20 months Aged Out No longe r eligible based on patient's age to complete this topic Care Teams Casino Games Dealer Relationship Specialty Start Date End Date Merrill Kline MD [address] [id number] PCP - General Family Medicine 01/23/23
--- OUTSIDE RECORDS SUMMARY | 2025-04-04 11:45 | XMS_ITS ---
Author Name [facility] Organization Unknown Encounters Encounter Type Encounter Reason Primary Diagnosis Location Date Ambulatory [facility] 07/08/2023
--- OUTSIDE RECORDS SUMMARY | 2025-04-04 11:46 | XMS_ITS | Referral Summary ---
Author Organization [facility] Address [address] [place] [address] Care Team Providers Care Infant Teacher Name Role Phone Merrill Kline Primary Care Provider [phone] Allergies Active Allergy Reactions Criticality Noted Date Comments Allopurinol Dizziness 11/11/2023 Dizziness and nausea Amlodipine Edema 11/11/2023 Enalapril Unknown 11/11/2023 Levofloxacin Unknown 11/11/2023 Lisinopril Angioedema High 11/11/2023 Medications dilTIAZem CD (CARDIZEM CD) 180 mg 24 hr capsule Take 180 mg by mouth once a day. Active rosuvastatin (CRESTOR) 10 mg tablet Take 10 mg by mouth once a day. Active hydroCHLOROthiaz ronak (HYDRODIURIL) 12.5 mg tablet Take 12.5 mg by mouth once a day. Active levocetirizine (XYZAL) 5 mg tabletIndication s:Angioedema, subsequent encounter Take 1 tablet (5 mg total) by mouth every evening. 90 tablet 3 11/15/2024 Active Active Problems Problem Noted Date Diagnosed Date Angio-edema 11/11/2023 Social History Tobacco Use Types Packs/Day Years Used Date Smoking Tobacco: Never Smokeless Tobacco: Never Tobacco Cessation:Counseling Given: Not Answered Alcohol Use Standard Drinks/Week Comments Not Currently 0 (1 standard drink = 0.6 oz pur e alcohol) Sex and Gender Information Value Date Recorded Sex Assigned at Male 11/11/2023 10:11 AM EST Legal Sex Male 11:52 AM EST Gender Identity Male 11/11/2023 10:11 AM EST Sexual Orientation Straight 11/11/2023 10 :11 AM EST Last Filed Vital Signs Vital Sign Reading Time Taken Comments Blood Pressure 116/78 11/15/2024 10:29 AM EST Pulse 52 11/15/2024 9:50 AM EST Temperature - - Respiratory Rate 18 11/11/2023 1:07 PM EST Oxygen Saturation 98% 11/15/2024 9:50 AM EST Inhaled Oxygen Concentration - - Weight 89.4 kg (197 lb) 11/15/2024 9:50 AM EST Height - - Body Mass Index - - Plan of Treatment Upcoming Encounters Date Type Department Care Team (Late st Contact Info) Description 11/16/2025 10:00 AM EST Office Visit [facility] [address] [facility] Allergy/Immunology [address] [place] [phone] Deandra Mederos DO [address] [place] [address] Insurance MEDICARE [facility] Care Teams Infant Teacher Relationship Specialty Start Date End Date Merrill Kline [address] [phone] PCP - General Family Medicine 10/14/23
--- OUTSIDE RECORDS SUMMARY | 2025-04-04 11:46 | XMS_ITS | Clinical Summary ---
Author Organization [facility] Address [address] [place] [address] Care Team Providers Care Multiple Spindle Router Operator Name Role Phone Merrill Kline Primary Care Provider [phone] Allergies Active Allergy Reactions Criticality Noted Date [...] Description 11/16/2025 10:00 AM EST Office Visit [facility] [address] [facility] Allergy/Immunology [address] [place] [phone] Deandra Mederos, DO [address] [place] [address] Health Maintenance Due Date Last Done Comments Basic Metabolic Panel 1950 Hepatitis C Screening 1950 Medicare AWV 1951 COVID-19 Vaccine ( season) 2024 11/03/2023, 09/10/2022, 03/15/2022, Additional history exists Alcohol/Substance Use Screening 11/30/2024 Depression Screening and Follow-Up 11/30/2024 Health Care Proxy Review 11/30/2024 Social Drivers of Health Annual Screening 11/30/2024 Influenza Vaccine (Season Ended) 2025 11/03/2023, 09/10/2022, 09/24/2021, Additional history exists DTaP,Tdap,and Td Vaccines (3 - Td or Tdap) 05/02/2029 05/02/2019, 04/03/2009 Pneumococcal Vaccine: 50+ Years Completed 09/11/2015, 06/04/2015 Zoster Vaccines Completed 03/27/2023, 02/2023, 06/17/2016 RSV Vaccine (60+ years old and patients) Completed 11/09/2023 Hepatitis B Vaccines Aged Out No long er eligible based on patient's age to complete this topic Insurance MEDICARE [facility] Care Teams Multiple Spindle Router Operator Relationship Specialty Start Date End Date Merrill Kline [address] [id number] PCP - General Family Medicine 10/14/23
== END 2025-04-04 10:45 | disposition home or self-care (01) ==
LOC: HO.HOS 10:16
PROVIDERS: PCP Family Medicine; Visit Provider Orthopaedic Surgery
DX: M54.2 Cervicalgia (principal)
CPT/HCPCS: 99213; G2211

== ENCOUNTER → 2025-04-04 10:16 | Outpatient (BNVA) | payer MEDICARE, SELFPAY | PROVIDERS: PCP Family Medicine; Visit Provider Orthopaedic Surgery | DX: M54.2 Cervicalgia (principal) | CPT/HCPCS: 99212 ==

== ENCOUNTER 2025-05-03 10:31 | Outpatient (AMB) | payer MEDICARE, SELFPAY ==
[2025-05-03 10:37] VITALS: BMI 26.5
--- NOTE | 2025-05-03 10:37 | MHC.OFFVIS ---
Vital Signs 05/03/25 10:37 Height 5 ft 11 in Weight 190 lb BMI 26.5 Intake Visit Reasons: OV- Cervical Spine MRI Review Intake Note: Justen is a 74 year old male who presents today for a cervical spine MRI review. The patient reports intermittent pain in his neck. He did try a Medrol Dosepak which gave him mild relief. He continues with his home shoulder stretching program. Allergies allopurinol Allergy (Intermediate, Verified 05/03/25 10:38) rapid HR enalapril Allergy (Intermediate, Verified 05/03/25 10:38) Swelling levofloxacin [From Levaquin] Allergy (Intermediate, Verified 05/03/25 10:38) rapid HR shrimp Allergy (Intermediate, Verified 05/03/25 10:38) swelling/? idiopathic reaction Medication List - Last Reconciled 05/03/25 by Stanley Wright MD diltiazem HCl CD 180 mg PO QAM hydrochlorothiazide 12.5 mg PO QAM levocetirizine 5 mg PO QAM methylprednisolone (Medrol (Uli)) PO PER PKG DIR rosuvastatin 10 mg PO QAM PFSH Medical History Angioedema Gout PVCs (premature ventricular contractions) Elevated cholesterol HTN (hypertension) Surgical History H/O colonoscopy H/O hernia repair (09/28/17) Social History Are you a primary customer care voice consultant to a significant other at home: No Do you presently have visiting nurse or other home services: No Alcohol intake: current Alcohol intake frequency: holidays/special occasions only Patient Tobacco Use Status: Never used Tobacco Current occupational status: retired Current occupation: Right hand dominant Physical Exam Vital Signs: BMI result Body Mass Index 26.5 Const Other: Well-nourished well-developed very friendly male awake alert and oriented x3 in no acute distress Neck Other: Cervical spine examination shows bilateral paraspinal muscle tenderness, pain with range of motion, positive Spurling's test Results Reviewed Results Reviewed: MRI of the patient's cervical spine from [facility] shows moderate to severe stenosis most significant at level C5-C6 and level C6-C7 Assessment & Plan Assessment & Plan (1) Cervical stenosis of spinal canal: Code(s): M48.02 - Spinal stenosis, cervical region Category: Medical Plan Mr. Comer presents with intermittent neck pain due to cervical stenosis. Thus, I will arrange for him to have an evaluation in our neurosurgery department here at [facility]. He will contact me prior to that appointment should his symptoms worsen in any way. Feel free to call me at any time should questions regarding his orthopedic management arise. I spent 20 minutes in reviewing the patient's records and imaging studies, seeing the patient and documenting in the medical record. Orders: Referrals Neuro Spine Referral M48.02 - Spinal stenosis, cervical region Coding Level of Care Code Est Pt Level 3 (28047) Complex EM visit Add On G2211 Diagnoses Cervical stenosis of spinal canal M48.02
== END 2025-05-03 11:08 | disposition home or self-care (01) ==
LOC: HO.HOS 10:31
PROVIDERS: PCP Family Medicine; Visit Provider Orthopaedic Surgery
DX: M48.02 Spinal stenosis, cervical region (principal)
CPT/HCPCS: 99213; G2211

== ENCOUNTER → 2025-05-03 10:31 | Outpatient (BNVA) | payer MEDICARE, SELFPAY | PROVIDERS: PCP Family Medicine; Visit Provider Orthopaedic Surgery | DX: M48.02 Spinal stenosis, cervical region (principal) | CPT/HCPCS: 99212 ==

== ENCOUNTER 2025-07-04 07:39 | Outpatient (REF) | payer MEDICARE, SELFPAY ==
--- NOTE | ~2025-07-04 | XR_ITS ---
CLINICAL HISTORY: Bilateral knee pain Three views of each knee Comparison: None provided Findings: No fractures or dislocations. No significant arthritic change or erosions. No joint effusion. No radiopaque foreign body. IMPRESSION: 1. No acute findings. This document has been electronically signed by: Chris Spencer MD on 07/04/2025 15:28:40
--- OUTSIDE RECORDS SUMMARY | 2025-07-04 07:42 | XMS_ITS | Clinical Summary ---
Author Organization [facility] Address [address] [place] [address] Care Team Providers Care Tabular Typist Name Role Phone Merrill Kline MD Primary Care Provider [phone] Allergies Active Allergy Reactions Criticality Noted Date [...] 08/26/2021, Additional history exists Influenza Vaccine (#1) 2025 , 09/24/2021, 09/17/2020, Additional history exists DTap / Tdap / Td (3 - Td or Tdap) 05/02/2029 05/02/2019, 04/03/2009 Pneumococcal Vaccine Completed 09/11/2015, 06/04/20 15 Hepatitis B Vaccines Aged Out No long er eligible based on patient's age to complete this topic RSV Ped < 20 months Aged Out No longe r eligible based on patient's age to complete this topic Care Teams Tabular Typist Relationship Specialty Start Date End Date Merrill Kline MD [address] [address] PCP - General Family Medicine 01/23/23
--- OUTSIDE RECORDS SUMMARY | 2025-07-04 07:42 | XMS_ITS | Clinical Summary ---
Author Organization [facility] Address [address] [place] [address] Care Team Providers Care Legal Secretary Receptionist Name Role Phone Merrill Klien Primary Care Provider [phone] Allergies Active Allergy Reactions Criticality Noted Date [...] Description 11/16/2025 10:00 AM EST Office Visit [facility] [address] [facility] Allergy/Immunology [address] [place] [address] Deandra Mederos, DO [address] [place] [address] Health Maintenance Due Date Last Done Comments Basic Metabolic Panel 1950 Hepatitis C Screening 1950 Medicare AWV 1951 COVID-19 Vaccine ( season) 2024 11/03/2023, 09/10/2022, 03/15/2022, Additional history exists Alcohol/Substance Use Screening 11/30/2024 Depression Screening and Follow-Up 11/30/2024 Health Care Proxy Review 11/30/2024 Social Drivers of Health Annual Screening 11/30/2024 Influenza Vaccine (#1) 2025 , 09/10/2022, 09/24/2021, Additional history exists DTaP,Tdap,and Td Vaccines (3 - Td or Tdap) 05/02/2029 05/02/2019, 04/03/2009 Pneumococcal Vaccine: 50+ Years Completed 09/11/2015, 06/04/2015 Zoster Vaccines Completed 03/27/2023, 02/2023, 06/17/2016 RSV Vaccine (60+ years old and patients) Completed 11/09/2023 Hepatitis B Vaccines Aged Out No long er eligible based on patient's age to complete this topic Insurance MEDICARE [facility] Care Teams Legal Secretary Receptionist Relationship Specialty Start Date End Date Merrill Kline [address] [phone] PCP - General Family Medicine 10/14/23
--- OUTSIDE RECORDS SUMMARY | 2025-07-04 07:42 | XMS_ITS ---
Author Name [facility] Organization Unknown Encounters Encounter Type Encounter Reason Primary Diagnosis Location Date Ambulatory [facility] 07/08/2023
== END 2025-07-04 07:40 | disposition home or self-care (01) ==
LOC: HO.HOSX 07:39
PROVIDERS: Visit Provider Orthopaedic Surgery
DX: S83.242A Other tear of medial meniscus, current injury, left knee, initial encounter (principal); M25.561 Pain in right knee; M25.562 Pain in left knee; M25.462 Effusion, left knee; M25.461 Effusion, right knee; Z79.899 Other long term (current) drug therapy; X58.XXXA Exposure to other specified factors, initial encounter
CPT/HCPCS: 73562; 99212

== ENCOUNTER 2025-07-04 10:32 | Outpatient (AMB) | payer MEDICARE, SELFPAY ==
--- NOTE | 2025-07-04 10:49 | A.OFFVIS_ITS ---
Vital Signs 07/04/25 10:54 Height 5 ft 10 in Weight 190 lb BMI 27.3 Intake Visit Reasons: Bilateral knee pains, Left knee pain and giving way Intake Note: Justen is a 74 year old male who presents with complaints of progressively worsening left knee pain and giving way. He also has intermittent discomfort in his right knee. He states that his right knee discomfort is tolerable to him at this time. The patient describes his left knee pain as sharp in nature. Most of the pain is along the medial aspect of his knee. States that his symptoms have gotten worse over the last year in spite of continued non operative treatments. He has tried Tylenol and prednisone which gave him minimal relief. He states that his left knee will give out several times per day. He has failed the last 6 weeks of conservative treatment. He has tried physical therapy exercises which aggravated his pain. Allergies allopurinol Allergy (Intermediate, Verified 07/04/25 10:54) rapid HR enalapril Allergy (Intermediate, Verified 07/04/25 10:54) Swelling levofloxacin (From Levaquin) Allergy (Intermediate, Verified 07/04/25 10:54) rapid HR shrimp Allergy (Intermediate, Verified 07/04/25 10:54) swelling/? idiopathic reaction Medication List - Last Reconciled 07/04/25 by Stanley Wright MD diltiazem HCl CD 180 mg PO QAM hydrochlorothiazide 12.5 mg PO QAM levocetirizine 5 mg PO QAM methylprednisolone (Medrol (Uli)) PO PER PKG DIR rosuvastatin 10 mg PO QAM PFSH Medical History Angioedema Gout PVCs (premature ventricular contractions) Elevated cholesterol HTN (hypertension) Surgical History H/O colonoscopy H/O hernia repair (09/28/17) Social History Are you a primary progressive care unit registered nurse to a significant other at home: No Do you presently have visiting nurse or other home services: No Alcohol intake: current Alcohol intake frequency: holidays/special occasions only Patient Tobacco Use Status: Never used Tobacco Current occupational status: retired Current occupation: Right hand dominant Physical Exam Vital Signs: BMI result Body Mass Index 27.3 Const Other: Well-nourished well-developed very friendly female awake alert and oriented x3 in no acute distress Extrem Other: Bilateral knee examination shows minimal effusions, mild crepitus with range of motion, tenderness along his medial joint lines, positive Allie's test, no instability Results Reviewed Results Reviewed: Standing full weight-bearing x-rays of the patient's bilateral knee show mild diffuse joint space narrowing, no acute bony abnormalities Assessment & Plan Assessment & Plan (1) Tear of medial meniscus of left knee: Code(s): S83.242A - Other tear of medial meniscus, current injury, left knee, initial encounter Category: Medical Plan Mr. Comer presents with bilateral knee pains and mechanical symptoms, left greater than right, due to early degenerative joint disease as well as possible medial meniscus tearing. Thus, I will send the patient for an MRI of his left knee for further evaluation. I did give him a prescription for Celebrex to help with his discomfort in the meantime. I will see him back after the MRI is completed to discuss the findings and treatment options. Feel free to call me at any time should questions regarding his orthopedic management arise. I spent 20 minutes in reviewing the patient's records and imaging studies, seeing the patient and documenting in the medical record. Orders: Orders knee LT wo con 07/05/25 S83.242A - Other tear of medial meniscus, current injury, left knee, initial encounter XR Knee Reese 3V Today M25.561 - Pain in right knee, M25.562 - Pain in left knee Medications: New celecoxib (Celebrex) 200 mg PO DAILY PRN 30 caps 2RF pain Coding Level of Care Code Est Pt Level 3 (42583) Complex EM visit Add On G2211 Diagnoses Tear of medial meniscus of left knee S83.242A
[2025-07-04 10:54] VITALS: BMI 27.3
== END 2025-07-04 11:20 | disposition home or self-care (01) ==
LOC: HO.HOS 10:32
PROVIDERS: PCP Family Medicine; Visit Provider Orthopaedic Surgery
DX: S83.242A Other tear of medial meniscus, current injury, left knee, initial encounter (principal)
CPT/HCPCS: 99213; G2211

== ENCOUNTER → 2025-07-04 10:34 | Outpatient (BNV) | payer MEDICARE, SELFPAY | PROVIDERS: Visit Provider Radiology Diagnostic Radiology | DX: M25.569 Pain in unspecified knee (principal) | CPT/HCPCS: 73562 ==

== ENCOUNTER 2025-07-26 14:36 | Outpatient (AMB) | payer MEDICARE, SELFPAY ==
--- NOTE | 2025-07-26 14:42 | MHC.OFFVIS ---
Vital Signs 07/26/25 14:48 Height 5 ft 10 in Weight 190 lb BMI 27.3 Intake Visit Reasons: Left knee pain Intake Note: Justen is a 74 year old male who presents with complaints of left knee pain and giving way. The patient describes his pain as sharp in nature. He has tried Tylenol and Celebrex which gave him mild relief. He has not had a cortisone injection given into his knee. He will be traveling to [place] next week. Allergies allopurinol Allergy (Intermediate, Verified 07/26/25 14:48) rapid HR enalapril Allergy (Intermediate, Verified 07/26/25 14:48) Swelling levofloxacin (From Levaquin) Allergy (Intermediate, Verified 07/26/25 14:48) rapid HR shrimp Allergy (Intermediate, Verified 07/26/25 14:48) swelling/? idiopathic reaction Medication List - Last Reconciled 07/27/25 by Stanley Wright MD celecoxib (Celebrex) 200 mg PO DAILY PRN diltiazem HCl CD 180 mg PO QAM hydrochlorothiazide 12.5 mg PO QAM levocetirizine 5 mg PO QAM methylprednisolone (Medrol (Uli)) PO PER PKG DIR rosuvastatin 10 mg PO QAM PFSH Medical History Angioedema Gout PVCs (premature ventricular contractions) Elevated cholesterol HTN (hypertension) Surgical History H/O colonoscopy H/O hernia repair (09/28/17) Social History Are you a primary insurance healthcare consultant to a significant other at home: No Do you presently have visiting nurse or other home services: No Alcohol intake: current Alcohol intake frequency: holidays/special occasions only Patient Tobacco Use Status: Never used Tobacco Current occupational status: retired Current occupation: Right hand dominant Physical Exam Vital Signs: BMI result Body Mass Index 27.3 Const Other: Well-nourished well-developed very friendly male awake alert and oriented x3 in no acute distress Extrem Other: Left knee examination shows a minimal effusion, mild crepitus with range of motion, tenderness along his medial joint line, positive Allie's test, no instability Office Procedures AMB Joint Injection/Aspiration Joint Injection/Aspiration Primary Site: left knee Prep: site was prepped using aseptic technique Injected: 40 mg of, DepoMedrol and 1% plain lidocaine Procedure: The patient tolerated the procedure well Coding - Large joint Procedure code (CPT) selection complete Results Reviewed Results Reviewed: MRI of the patient's left knee shows mild to moderate diffuse degenerative changes as well as a tear of the medial meniscus Assessment & Plan Assessment & Plan (1) Tear of medial meniscus of left knee: Code(s): S83.242A - Other tear of medial meniscus, current injury, left knee, initial encounter Category: Medical (2) Left knee pain: Code(s): M25.562 - Pain in left knee Plan Mr. Comer presents with left knee pain and mechanical symptoms due to early degenerative joint disease as well as a medial meniscus tear. The risks and benefits of a left knee cortisone injection were discussed at length with the patient. The patient wished to proceed. He tolerated the injection well. I also gave him a prescription for a Medrol Dosepak to take with him to [place] if he needs it. He will contact me prior to his follow-up appointment in 3 months should any questions or concerns arise. Feel free to call me at any time should questions regarding his orthopedic management arise. I spent 21 minutes in reviewing the patient's records and imaging studies, seeing the patient and documenting in the medical record. Orders: Orders AMB Joint Injection/Aspiration 07/26/25 S83.242A - Other tear of medial meniscus, current injury, left knee, initial encounter Medications: Refilled methylprednisolone (Medrol (Uli)) PO PER PKG DIR 21 ea 0RF Coding Level of Care Code Est Pt Level 3 (12521) Complex EM visit Add On G2211 Diagnoses Tear of medial meniscus of left knee S83.242A Left knee pain M25.562 CPT Codes Coding - Large joint: 84186 - Large joint ([id number])
[2025-07-26 14:48] VITALS: BMI 27.3
--- OUTSIDE RECORDS SUMMARY | 2025-07-26 15:32 | XMS_ITS | Clinical Summary ---
Author Organization [facility] Address [address] [place] [address] Care Team Providers Care Learning Consultant Name Role Phone Merrill Kline MD Primary Care Provider [phone] Allergies Active Allergy Reactions Criticality Noted Date [...] age to complete this topic Care Teams Learning Consultant Relationship Specialty Start Date End Date Merrill Kline MD [address] [phone] PCP - General Family Medicine 01/23/23
--- OUTSIDE RECORDS SUMMARY | 2025-07-26 15:32 | XMS_ITS | Clinical Summary ---
Author Organization [facility] Address [address] [place] [address] Care Team Providers Care Mess Cook Name Role Phone Merrill Kline Primary Care Provider [phone] Allergies Active Allergy Reactions Criticality Noted Date [...] Description 11/16/2025 10:00 AM EST Office Visit [facility] [address] [facility] Allergy/Immunology [address] [place] [address] Deandra Mederos, DO [address] [place] [address] Health Maintenance Due Date Last Done Comments [...] age to complete this topic Insurance MEDICARE [facility] Care Teams Mess Cook Relationship Specialty Start Date End Date Merrill Kline [address] [phone] PCP - General Family Medicine 10/14/23
== END 2025-07-26 15:11 | disposition home or self-care (01) ==
LOC: HO.HOS 14:37
PROVIDERS: PCP Family Medicine; Visit Provider Orthopaedic Surgery
DX: S83.242A Other tear of medial meniscus, current injury, left knee, initial encounter (principal); M25.562 Pain in left knee
CPT/HCPCS: 20610; 99213

== ENCOUNTER → 2025-07-26 14:36 | Outpatient (BNVA) | payer MEDICARE, SELFPAY | PROVIDERS: PCP Family Medicine; Visit Provider Orthopaedic Surgery | DX: M25.562 Pain in left knee (principal); S83.242D Other tear of medial meniscus, current injury, left knee, subsequent encounter | CPT/HCPCS: 20610; 99212; J1010; J2003 ==

== ENCOUNTER 2025-08-25 09:43 | Outpatient (AMB) | payer MEDICARE, SELFPAY ==
[2025-08-25 10:06] VITALS: BMI 26.5
--- NOTE | 2025-08-25 10:06 | A.SPINEOV_ITS ---
Vital Signs 08/25/25 10:06 Height 5 ft 11 in Weight 190 lb BMI 26.5 Intake Visit Reasons: cervical stenosis Intake Note: Mr. Comer is here today c/o pain in the right side of the neck. Skein Yarn Drier Required: No Allergies allopurinol Allergy (Intermediate, Verified 08/25/25 10:06) rapid HR enalapril Allergy (Intermediate, Verified 08/25/25 10:06) Swelling levofloxacin (From Levaquin) Allergy (Intermediate, Verified 08/25/25 10:06) rapid HR shrimp Allergy (Intermediate, Verified 08/25/25 10:06) swelling/? idiopathic reaction Physical Exam Vital Signs: BMI result Body Mass Index 26.5 Assessment & Plan Assessment & Plan (1) Neck pain on right side: Code(s): M54.2 - Cervicalgia Category: Medical Plan Dear colleague Thank you for referring Justen Comer to the office today with a chief complaint of neck pain. HPI: This 74-year-old gentleman had right shoulder surgery done. He developed right-sided neck pain that responded well to steroids. Currently he is asymptomatic. He was told to get an MRI and visit me for an evaluation. Patient denies any radiation down the arms. No numbness or weakness Physical Exam: Neck motion is unrestricted without pain. Neurological exam is intact to motor sensation reflexes Radiological Studies: MRI of the cervical spine done at [facility] shows mild degenerative changes. In fact, there is moderate foraminal stenosis C6 and C7 on the left side. Impression/Plan: This 74-year-old male suffered from some right-sided neck pain that responded well to steroids. MRI shows no explanation for symptoms. I discharged him from further follow-up. Thank you for allowing me to participate in your patients care. total time spent was 30 minutes in counseling ,coordination of plan, personal review of imaging, surgical decision making and subsequent plan Marcus Mahmood MD, PhD Spine Fellowship Trained Neurosurgeon Director, [facility] Coding Level of Care Code New Pt Level 3 (91155) Diagnoses Neck pain on right side M54.2
--- OUTSIDE RECORDS SUMMARY | 2025-08-25 10:45 | XMS_ITS | Clinical Summary ---
Author Organization [facility] Address [address] [place] [address] Care Team Providers Care Airplane And Engine Inspector Name Role Phone Merrill Kline Primary Care Provider [phone] Allergies Active Allergy Reactions Criticality Noted Date [...] Description 11/16/2025 10:00 AM EST Office Visit [facility] [address] [facility] Allergy/Immunology [address] [place] [address] Deandra Mederos, DO [address] [place] [address] Health Maintenance Due Date Last Done Comments Basic Metabolic Panel 1950 Hepatitis C Screening 1950 Medicare AWV 1951 Alcohol/Substance Use Screening 11/30/2024 Depression Screening and Follow-Up 11/30/2024 Health Care Proxy Review 11/30/2024 Social Drivers of Health Annual Screening 11/30/2024 COVID-19 Vaccine ( season) 2025 11/03/2023, 09/10/2022, 03/15/2022, Additional history exists Influenza Vaccine (#1) 2025 , 09/10/2022, 09/24/2021, Additional history exists DTaP,Tdap,and Td Vaccines (3 - Td or Tdap) 05/02/2029 05/02/2019, 04/03/2009 Pneumococcal Vaccine: 50+ Years Completed 09/11/2015, 06/04/2015 Zoster Vaccines Completed 03/27/2023, 02/2023, 06/17/2016 RSV Vaccine (60+ years old and patients) Completed 11/09/2023 Hepatitis B Vaccines Aged Out No long er eligible based on patient's age to complete this topic Insurance MEDICARE [facility] Care Teams Airplane And Engine Inspector Relationship Specialty Start Date End Date Merrill Kline [address] [phone] PCP - General Family Medicine 10/14/23
--- OUTSIDE RECORDS SUMMARY | 2025-08-25 10:45 | XMS_ITS | Clinical Summary ---
Author Organization [facility] Address [address] [place] [address] Care Team Providers Care Social Service Technician Name Role Phone Merrill Kline MD Primary Care Provider [phone] Allergies Active Allergy Reactions Criticality Noted Date [...] 75+ series) 2023 COVID-19 Vaccine ( season) 2025 09/10/2022, 03/15/2022, 08/26/2021, Additional history exists Influenza [...] age to complete this topic Care Teams Social Service Technician Relationship Specialty Start Date End Date Merrill Kline MD [address] [phone] PCP - General Family Medicine 01/23/23
== END 2025-08-25 10:46 | disposition home or self-care (01) ==
LOC: HO.HNS 09:43
PROVIDERS: PCP Family Medicine; Referring Provider Orthopaedic Surgery; Visit Provider Neurological Surgery
DX: M54.2 Cervicalgia (principal)
CPT/HCPCS: 99203

== ENCOUNTER → 2025-08-25 09:43 | Outpatient (BNVA) | payer MEDICARE, SELFPAY | PROVIDERS: PCP Family Medicine; Referring Provider Orthopaedic Surgery; Visit Provider Neurological Surgery | DX: M54.2 Cervicalgia (principal) | CPT/HCPCS: 99202 ==

== ENCOUNTER 2025-11-01 09:36 | Outpatient (AMB) | payer MEDICARE, SELFPAY ==
--- NOTE | 2025-11-01 09:39 | MHC.OFFVIS ---
Intake Visit Reasons: Left knee pain Intake Note: Justen is a 74 year old male who presents with complaints of intermittent discomfort in his left knee. The patient did receive a cortisone injection into his left knee at his last visit. He states that he got fairly good relief from that injection. He continues with his exercise program. He does take Celebrex as needed for his discomfort. Allergies allopurinol Allergy (Intermediate, Verified 11/01/25 09:40) rapid HR enalapril Allergy (Intermediate, Verified 11/01/25 09:40) Swelling levofloxacin (From Levaquin) Allergy (Intermediate, Verified 11/01/25 09:40) rapid HR shrimp Allergy (Intermediate, Verified 11/01/25 09:40) swelling/? idiopathic reaction Medication List - Last Reconciled 11/01/25 by Stanley Wright MD celecoxib (Celebrex) 200 mg PO DAILY PRN diltiazem HCl CD 180 mg PO QAM hydrochlorothiazide 12.5 mg PO QAM levocetirizine 5 mg PO QAM methylprednisolone (Medrol (Uli)) PO PER PKG DIR rosuvastatin 10 mg PO QAM PFSH Medical History Angioedema Gout PVCs (premature ventricular contractions) Elevated cholesterol HTN (hypertension) Surgical History H/O colonoscopy H/O hernia repair (09/28/17) Social History Are you a primary lead care manager to a significant other at home: No Do you presently have visiting nurse or other home services: No Alcohol intake: current Alcohol intake frequency: holidays/special occasions only Patient Tobacco Use Status: Never used Tobacco Current occupational status: retired Current occupation: Right hand dominant Physical Exam Extrem Other: Left knee examination shows a minimal effusion, minimal crepitus with range of motion, tenderness along his medial joint line, positive Allie's test Results Reviewed Results Reviewed: MRI of the patient's left knee shows mild diffuse degenerative changes as well as a tear of the medial meniscus Assessment & Plan Assessment & Plan (1) Left knee pain: Code(s): M25.562 - Pain in left knee Plan Mr. Comer presents with intermittent left knee discomfort due to early degenerative joint disease as well as a medial meniscus tear. I had a lengthy discussion with the patient regarding the treatment options. At this point his symptoms are tolerable to him. He will continue with his exercise program. He will follow up with me on an as-needed basis should his symptoms worsen in any way. Feel free to call me at any time should questions regarding his orthopedic management arise. I spent 22 minutes in reviewing the patient's records and imaging studies, seeing the patient and documenting in the medical record. Coding Level of Care Code Est Pt Level 3 (31617) Complex visit Add On G2211 Diagnoses Left knee pain M25.562
--- OUTSIDE RECORDS SUMMARY | 2025-11-01 10:37 | XMS_ITS | Clinical Summary ---
Author Organization [facility] Address [address] [place] [address] Care Team Providers Care Counter Pocket Trimmer Name Role Phone Merrill Kline Primary Care Provider [phone] Allergies Active Allergy Reactions Criticality Noted Date [...] Description 11/16/2025 10:00 AM EST Office Visit [facility] 198 [facility] Allergy/Immunology [address] [place] [phone] Deandra Mederos, DO [address] [place] [address] Health Maintenance Due Date Last Done Comments Basic Metabolic Panel 1950 Hepatitis C Screening 1950 Medicare AWV 1951 Alcohol/Substance Use Screening 11/30/2024 Depression Screening and Follow-Up 11/30/2024 Fall Risk Screening 11/30/2024 Health Care Proxy Review 11/30/2024 Social Drivers of Health Annual Screening 11/30/2024 Influenza Vaccine (#1) 2025 , 09/10/2022, 09/24/2021, Additional history exists COVID-19 Vaccine ( season) 2025 11/03/2023, 09/10/2022, 03/15/2022, Additional history exists DTaP,Tdap,and Td Vaccines (3 - Td or Tdap) 05/02/2029 05/02/2019, 04/03/2009 Pneumococcal Vaccine: 50+ Years Completed 09/11/2015, 06/04/2015 Zoster Vaccines Completed 03/27/2023, 02/2023, 06/17/2016 RSV Vaccine (60+ years old and patients) Completed 11/09/2023 Hepatitis B Vaccines Aged Out No long er eligible based on patient's age to complete this topic Insurance MEDICARE [facility] Care Teams Counter Pocket Trimmer Relationship Specialty Start Date End Date Merrill Kline [address] [phone] PCP - General Family Medicine 10/14/23
--- OUTSIDE RECORDS SUMMARY | 2025-11-01 10:37 | XMS_ITS | Clinical Summary ---
Author Organization [facility] Address [address] [place] [address] Care Team Providers Care Grant Administrator Name Role Phone Merrill Kline MD Primary Care Provider [phone] Allergies Active Allergy Reactions Criticality Noted Date [...] age to complete this topic Care Teams Grant Administrator Relationship Specialty Start Date End Date Merrill Kline MD [address] [address] PCP - General Family Medicine 01/23/23
--- OUTSIDE RECORDS SUMMARY | 2025-11-01 10:37 | XMS_ITS | Data Portability ---
Author Organization [facility] Debra Kirkpatrick [facility] Address [address] [place] [address] Care Team Providers Care Division Roadmaster Name Role Phone ROSALIND PERALTA Primary Care Provider [phone] Assessment Encounter Date Assessment Date Assessment LastModified by Organization Details LastModified Time 02/20/2023 02/20/2023 Mr. Comer present s with right shoulder pain due to acromioclavicular joint arthritis, impingement syndrome and rotator cuff tendinosis. I had a lengthy discussion with patient regarding the treatment options. He wishes to hold off on surgery for as long as possible. I agree with this plan. Thus, after verbal consent was given I prepped his right shoulder with alcohol. I then injected 5 cc of 1% plain lidocaine followed by 40 mg of Kenalog. Patient tolerated the injection well. Activity modifications were discussed at length with the patient. He will follow-up with me on an as-needed basis should his symptoms not plateau at an acceptable level over the next few months. [email or web address] Not available 02/20/2023 09:33:02 Plan of Treatment Reminders Order Date Submit Date Provider Last Modified By Organization Details Last Modified Time Details Appointments None record ed. Lab None record ed. Referral None record ed. Procedures None record ed. Surgeries None record ed. Imaging None record ed. Medication Orders None record ed. Patient TargetsNo targets recorded. Patient InstructionsNo instructions recorded. Reason for Referral None Reported. Results Created Date Observation Date Name Description Value Unit Range Abnormal Flag Note LastModifiedBy Organization Detail LastModifiedTime 02/19/20 MRI, shoul dillon, w/o contr ast No observ ation record ed. [email or web address] Not Available 2022 10:01:23 07/18/20 25 07/14/2025 imagi ng/di agnos tic resul t No observ ation record ed. [facility] ([facility] [address] [facility], [place], [address], 07/18/2025 10:26:36 Result Notes None recorded. Problems Name Problem SNOMED Code Status Onset Date Resolution Date Notes Provider Name and Address Organization Details Recorded Time Impingement syndrome of right shoulder region 3967182186407 02 Active 2022 Stanley Wright MD [address] [facility] [address], [place], [address], [place] [facility] 3 09:32:11 Problem Notes None recorded. Procedures Surgical History Date Name Laterality Status Provider Name and Address Organization Details Recorded Time 3 Shoulder Joint/Bursa Asp & Inj completed Stanley Wright MD [address] [facility],[address], [place], [address], [place] [facility] 02/20/2023 09:32:03 hernia repair completed Kay Mercado [facility] 02/20/2023 08:10:03 Imaging Results None recorded. Procedure Notes None recorded. Medical Equipment None Reported. Allergies Allergen ID Allergen Name Allergen Category Reaction Reaction Severity Criticality Documentation Date Start Date Code Code System Note Provider Name and Address Organization Details Recorded Time 841 enalapril Not available Not available Not available Not available 02/20/2023 3827 RxNorm Kay Mercado null, [place] [facility] 3 08:08:19 842 Levaquin medicatio n Not available Not available Not available 02/20/2023 49736 2 RxNorm Kay Mercado null, [place] [facility] 3 08:08:27 843 allopurin ol medicatio n Not available Not available Not available 02/20/2023 519 RxNorm Kay Mercado null, [place] [facility] 3 08:08:35 78594 levofloxa alem medicatio n Not available Not available Not available 08/22/20252022 47494 RxNorm React ion: Other (See Comme nts), sever ity: Unkno wn Not Available [facility] 5 01:27:50 74393 amlodipin e medicatio n Not available Not available Not available 08/22/20252022 67268 RxNorm React ion: Other (See Comme nts), sever ity: Unkno wn Not Available [facility] 5 01:27:50 71492 losartan medicatio n Not available Not available Not available 08/22/20252022 79718 RxNorm React ion: Other (See Comme nts), sever ity: Unkno wn Not Available [facility] 5 01:27:51 73242 lisinopri l medicatio n Not available Not available Not available 08/22/20252022 47261 RxNorm React ion: Other (See Comme nts), sever ity: Unkno wn Not Available [facility] 5 01:27:51 Medications Name Sig Start Date Stop Date Status Note LastModified by Organization Details LastModified Time diltiazem ER 180 mg capsule,24 hr,extended release Take 1 capsule (180 mg total) by mouth daily. 2021 active Not Available Not Available Not Avai lable diltiazem CD 180 mg capsule,exte nded release 24 hr TAKE 1 CAPSULE BY MOUTH EVERY DAY active Not Available Not Available No t Available oseltamivir 75 mg capsule TAKE 1 CAPSULE BY MOUTH TWICE A DAY FOR 5 DAYS active Not Available Not Available No t Available indomethacin 50 mg capsule indomethaci n 50 mg capsuleTAKE 1 CAPSULE BY MOUTH THREE TIMES A DAY WITH FOOD NEEDED active Not Available Not Available No t Available amoxicillin 875 mg-potassium clavulanate 125 mg tablet TAKE 1 TABLET BY MOUTH TWICE A DAY FOR 7 DAYS active Not Available Not Available No t Available rosuvastatin 10 mg tablet TAKE 1 TABLET BY MOUTH EVERY DAY IN THE EVENING FOR 90 DAYS 2021 active Not Available Not Available Not Avai lable hydrochlorot hiazide 12.5 mg tablet Take 1 tablet (12.5 mg total) by mouth daily. 2021 active Not Available Not Available Not Avai lable levocetirizi ne 5 mg tablet active Not Available Not Available Not Available GaviLyte-G 236 gram-22.74 gram-6.74 gram-5.86 gram oral solution DRINK 8 OUNCES EVERY 15 TO 20 MINUTES DIRECTED UNTIL DONE active Not Available Not Available N ot Available Vitals Date Recorded Body height Body mass index (BMI) Body weight Body height Body mass index (BMI) Body weight Provider Name and Address Organization Details Last Updated DateTime 02/20/2023 180.34 cm 25.8 kg/m2 78524.59 g 180.34 cm 25.8 kg/m2 77778.[address] [facility], 09:09:33 Social History None recorded. Functional Status None recorded. Mental Status None recorded. Family History Relationship Description Onset Age of this Age Resolved Age Notes LastModified by Organization Details LastModified Time Father Diabetes mellitus [email or web address] Not available 2022 08:09:18 Mother Hypertensive disorder [email or web address] Not available 2022 08:09:38 Medical History Condition Response Gout Y Hypertension Y Past Encounters Encounter ID Performer Location Encounter Start Date Encounter Closed Date Diagnosis/Indication Diagnosis SNOMED-CT Code Diagnosis ICD10 Code Diagnosis IMO Codes Diagnosis Note [id number] [facility] [address] [facility] [address] [place] [address] 02/20/2023 09:03:29 02/20/2023 09:30:29 Impingement syndrome of right shoulder region [id number] 26048 M75.41 Health Concerns Section Related Observation LastModified by Organization Detai ls LastModified Time None Recorded Concern Status LastModified by Organization Details LastModified Time None Recorded Advance Directives Directive None Recorded Payers Insurance Date Sequence Insurance Name Policy Number Policy Tay Covered Member ID Tay Member ID Guarantor Name 02/20/2023 1 [place] [employer] Justen Avitiar [id number] Justen Comer 02/23/2023 2 [place] [id number] Justen Souleymane [id number] Justen Avitiar Notes Date Note Type Note Provider Name and Address Organization Details Recorded Time 02/20/2023 text/html Patient presents with complaints of progressively worsening right shoulder pain. He describes his pain as sharp in nature. Most of the pain is along the lateral aspect of the shoulder. He denies any weakness. He has done physical which aggravated his pain. He has also tried Tylenol and anti-inflammatory medicines which gave him minimal relief. He has had cortisone injections in the past which gave him fairly good relief. Stanley Wright MD [address] [place] [address], [phone], [place] [facility] 02/20/2023 09:33:29
== END 2025-11-01 10:02 | disposition home or self-care (01) ==
LOC: HO.HOS 09:37
PROVIDERS: PCP Family Medicine; Visit Provider Orthopaedic Surgery
DX: M25.562 Pain in left knee (principal)
CPT/HCPCS: 99213; G2211

== ENCOUNTER → 2025-11-01 09:36 | Outpatient (BNVA) | payer MEDICARE, SELFPAY | PROVIDERS: PCP Family Medicine; Visit Provider Orthopaedic Surgery | DX: M25.562 Pain in left knee (principal) | CPT/HCPCS: 99212 ==